=== PATIENT | female | born 1960 | race Caucasian/White ===

== ENCOUNTER 2018-02-18 14:16 | Observation (INO) | payer MEDICARE ==
[2018-02-18] MEDS ORDERED: Acetaminophen 325 MG TAB PO PRN (15:43)
[2018-02-18] MEDS ORDERED: Senokot 8.6 MG TAB PO PRN (15:43)
[2018-02-18] MEDS ORDERED: Guaifenesin DM 100-10/5 ML UDCUP PO PRN (15:43)
[2018-02-18] MEDS ORDERED: Nitroglycerin 0.4 MG TAB (25 Tab Bottle) PO PRN (15:43)
[2018-02-18 16:32] LABS: Troponin I Less than 0.010 ng/mL (< 0.028)
--- NOTE | 2018-02-18 17:21 | HP ---
REASON FOR ADMISSION: Chest pain. HISTORY OF PRESENT ILLNESS: The patient gives history of having sharp left- sided chest pain with radiation to the epigastric area, this happened a week back. She thinks she probably passed out for an hour or so after this. She was watching her usual TV episode during this time and next thing she knows was the episode was over. This morning, she has had dull aching chest pain while she was eating corn flakes. This happened in association with bilateral shoulder paraesthesias. This lasted for 30 minutes and slowly weaned off. She has had dry cough for almost a month now and thinks that it is seasonal allergies. Has no complaints of palpitations, PND or orthopnea. She has had her right ankle, right hip repair and does not ambulate much. She also has history of rheumatoid arthritis with involvement of small joints. The patient has had a prior stress test done in 2013 in [place] in [facility] which was negative as far she knows. PAST MEDICAL AND SURGICAL HISTORY: History of rheumatoid arthritis involving the small joints of her hand, likely migraine seizures the way patient describes her seizures is, she has pain going from the nip of her neck all the way to her occiput and she apparently loses consciousness, but she hears everything. She has never had thrashing of any of her extremities with this. Hypertension, gastroesophageal reflux disease, dyslipidemia, hypothyroidism, right hip repair, right ankle fracture with repair, x1, left carpal tunnel surgery, has had abdominal exploratory surgery, on the lookout for ulcer which was not found, but she was found to be then. CURRENT MEDICATIONS: Norvasc 5 mg daily, Lipitor 10 mg daily, felbamate 400 mg 3 times daily, Keppra 500 mg twice daily, lisinopril 40 mg p.o. daily, levothyroxine 112 mcg p.o. daily, rizatriptan p.r.n. ALLERGIES: Allergic to IODINE. PERSONAL HISTORY: Quit smoking in 1997. Has smoked six packs a day for nearly 10 years or so prior to that. Does not abuse alcohol, but drinks on social occasions. Does not abuse drugs. FAMILY HISTORY: Mother at the age of 80 years. She has had history of CABG and heart failure, CABG was in her 70s. Father of MD at the age of 75 years. Her two brothers have had CABG when they were in their 60s. REVIEW OF SYSTEMS: The following complete review of systems was negative, unless otherwise mentioned in the HPI or below: Constitutional: Weight loss or gain, ability to conduct usual activities. Skin: Rash, itching. Eyes: Double vision, pain. ENT/Mouth: Nose bleeding, neck stiffness, pain, tenderness. Cardiovascular: Palpitations, dyspnea on exertion, orthopnea. Respiratory: Shortness of breath, wheezing, cough, hemoptysis, fever or night sweats. Gastrointestinal: Poor appetite, abdominal pain, heartburn, nausea, vomiting, constipation, or diarrhea. Genitourinary: Urgency, frequency, dysuria, nocturia. Musculoskeletal: Pain, swelling. Neurologic/Psychiatric: Anxiety, depression. Allergy/Immunologic: Skin rash, bleeding tendency. PHYSICAL EXAMINATION: GENERAL: The patient is a 57-year-old female who is currently not in any acute distress. VITAL SIGNS: Blood pressure 128/86, pulse 100 per minute, respiratory rate 18 per minute, temperature 97.6 degrees Fahrenheit, and saturating 96% on room air. NECK: Supple, no elevated JVD. EYES: Extraocular muscles intact. Pupils are reacting to light. ORAL CAVITY: Mucous membranes are moist. No exudates or congestion. CARDIOVASCULAR SYSTEM: S1, S2 heard. Regular rhythm. RESPIRATORY SYSTEM: Air entry 1+ bilateral. Scattered rhonchi plus no rales or wheezes. ABDOMEN: Soft, bowel sounds heard. No tenderness, rigidity or guarding. EXTREMITIES: No peripheral edema or calf tenderness. VASCULAR SYSTEM: Peripheral pulses 1+ bilateral, no ischemic ulcerations or gangrene. CENTRAL NERVOUS SYSTEM: No gross focal deficits seen. Patient is alert, awake , oriented well. PSYCHIATRIC SYSTEM: The patient's mood is euthymic. No hallucinations or delusions. IMAGING DATA AND LABORATORY DATA: EKG done at [facility] shows sinus tachycardia at 113 beats per minute, no gross ST-T wave changes. Repeat EKG done at 3:15 p.m. here shows normal sinus rhythm at 92 beats per minute. Urinalysis is positive for UTI with moderate leukoesterase and 2+ bacteria, although the patient is not symptomatic for the same. Urine drug screen is negative. BUN 7.8, creatinine 0.7, serum glucose is 190, albumin is 4.5. Troponin x1 at [facility] is negative. CK-MB is 0.8, hemoglobin and hematocrit 11 and 36, platelet count 327, MCV 79 with 52% neutrophils. CLINICAL IMPRESSION AND PLAN: The patient will be under observation on telemetry for chest pain, rule out acute coronary syndrome. The patient appears to have atypical chest pain, but has multiple risk factors. She also has very strong family history as well. We will obtain one more set of troponin and patient will be scheduled for nuclear stress test. We will place her on aspirin and follow ACS evidence based protocol. She will continue her Lipitor, felbamate and Keppra for her seizures, Synthroid and reduce her lisinopril to 10 mg twice daily. We will continue to closely monitor her for any hemodynamic compromise. The patient will also be on Cipro for her urinary tract infection and please note patient is not symptomatic and was incidentally found to have had the same at [facility]. We will obtain a urine culture. Likely patient will not be treated on discharge for this. [facility]
[2018-02-18 17:27] VITALS: BMI 36.3
[2018-02-18 19:20] LABS: Troponin I Less than 0.010 ng/mL (< 0.028)
[2018-02-18] MEDS: levETIRAcetam 500 MG TAB PO SCH (20:07)
[2018-02-18] MEDS: Ciprofloxacin 500 MG TAB PO SCH (20:07)
[2018-02-18] MEDS: Famotidine 20 MG TAB PO SCH (20:08)
[2018-02-18] MEDS ORDERED: Atorvastatin Calcium 10 MG TAB PO SCH (21:00)
[2018-02-18 23:00] LABS: Troponin I Less than 0.010 ng/mL (< 0.028)
[2018-02-18] MEDS: Lisinopril 10 MG TAB PO SCH (23:26)
[2018-02-19 04:49] LABS: #Basophils 0.1 thou/uL (0.0-0.2); #Eosinphils 0.2 thou/uL (0.0-0.7); #Lymphocytes 2.6 thou/uL (1.20-3.40); #Monocytes 0.7 thou/uL (0.11-0.59); #Neutrophils 3.2 thou/uL (1.40-6.50); %Basophils 1.2 % (0.0-1.0); %Eosinophils 2.3 % (0.0-10.0); %Lymphocytes 38.9 % (21.0-51.0); %Monocytes 10.2 % (0.0-10.0); %Neutrophils 47.5 % (42.0-75.0); Hemoglobin 11.2 g/dL (12.0-16.0); Mean Corpuscular HGB CONC 32.5 g/dL (32.0-36.0); Mean Corpuscular Hemoglobin 26.9 pg (27.0-31.0); Mean Corpuscular Volume 82.7 fl (81.0-99.0); Mean Platelet Volume 7.1 fL (7.4-10.4); Platelet Count 311 thou/uL (130-400); RBC Distribution Width 15.5 % (11.5-14.5); Red Blood Cell (RBC) Count 4.16 mill/uL (4.20-5.40); White Blood Cell (WBC) Count 6.8 thou/uL (4.8-10.8)
[2018-02-19 04:56] LABS: Anion Gap 12 mmol/L (10-20); BUN (Urea Nitrogen) 10 mg/dL (9.8-20.1); Calc. Creatinine Clearance 122 mL/min (70-130); Calcium 9.6 mg/dL (7.8-10.44); Carbon Dioxide 27 mmol/L (22-29); Cardiac Risk 4.2 (Less than 4.5); Chloride 103 mmol/L (98-107); Cholesterol 159 mg/dl (< 200 Desired); Estimated GFR-MDRD 89; Glucose 121 mg/dL (70-105); HDL Cholesterol 38 mg/dL (>60 Neg Risk); LDL Cholesterol, Calculated 91 mg/dL; Potassium 3.9 mmol/L (3.5-5.1); Sodium 138 mmol/L (136-145); Triglycerides 150 mg/dL (Less than 150)
[2018-02-19] MEDS: Ciprofloxacin 500 MG TAB PO SCH (05:46)
[2018-02-19] MEDS ORDERED: Levothyroxine Sodium 112 MCG TAB PO SCH (06:00)
[2018-02-19] MEDS ORDERED: Lorazepam 2 MG/ML VIAL ONE (08:57)
[2018-02-19] MEDS ORDERED: Enoxaparin Sodium 40 MG/0.4 ML SYRINGE SC SCH (09:00)
[2018-02-19] MEDS ORDERED: Aspirin 325 MG TAB PO SCH (09:00)
[2018-02-19] MEDS ORDERED: Amlodipine 5 MG TAB PO SCH (09:00)
[2018-02-19] MEDS ORDERED: Lorazepam 2 MG/ML VIAL SLOW IVP SCH (10:00)
[2018-02-19] MEDS: Lisinopril 10 MG TAB PO SCH (11:13)
[2018-02-19] MEDS: Famotidine 20 MG TAB PO SCH (11:13)
[2018-02-19] MEDS: levETIRAcetam 500 MG TAB PO SCH (11:14)
--- NOTE | 2018-02-19 12:46 | NM ---
NUCLEAR MEDICINE CARDIAC STRESS WITH EJECTION FRACTION AND WALL MOTION: HISTORY: 57-year-old female. Hyperthyroidism. Chest pain. Hypertension. Family history of CABG. COMPARISON: None. TECHNIQUE: The patient was administered 10.5 mCi of technetium-99m sestamibi for rest imaging and 28 mCi of tech netium-99m sestamibi for stress imaging. Cardiac gating is performed. FINDINGS: There is homogeneous distribution of the radiotracer in the left ventricle on the attenuation correct ed images. No reversibility. No fixed defect. TID is 1.17. End-diastolic volume is 49 mL. End-systolic volume is 12 mL. CARDIAC GATING: Normal motion and thickening. Ejection fraction is 75%. IMPRESSION: 1. Homogeneous distribution of radiotracer. No reversibility or fixed defect. 2. Ejection fraction is 75%. POS: PATRICIA
--- NOTE | 2018-02-19 13:47 | PDOC.PN ---
- Subjective Encounter Start Date: 02/19/18 Encounter Start Time: 13:30 Subjective: no further chest pain, feels better - Objective MAR Reviewed: Yes Vital Signs & Weight: Vital Signs (12 hours) Temp Pulse Resp BP Pulse Ox 02/19/18 11:59 97.8 F 102 H 16 118/68 94 L 02/19/18 07:59 98.3 F 90 16 02/19/18 07:22 98.4 F 94 20 117/75 94 L 02/19/18 03:47 98.3 F 90 16 104/75 92 L Weight Weight 186 lb 1.6 oz I&O: 02/18/18 02/19/18 02/20/18 06:59 06:59 06:59 Intake Total 1260 Output Total 900 Balance 360 Result Diagrams: 02/19/18 04:17 02/19/18 04:17 Phys Exam - Physical Examination HEENT: PERRLA, moist MMs Neck: no JVD, supple Respiratory: no wheezing, no rales Cardiovascular: RRR, no significant murmur Gastrointestinal: soft, non-tender, positive bowel sounds Musculoskeletal: no edema, pulses present Neurological: non-focal, moves all 4 limbs Psychiatric: normal affect, A&O x 3 Dx/Plan (1) Chest pain Code(s): R07.9 - CHEST PAIN, UNSPECIFIED Status: Resolved Qualifiers: Chest pain type: unspecified Qualified Code(s): R07.9 - Chest pain, unspecified (2) HTN (hypertension) Code(s): I10 - ESSENTIAL (PRIMARY) HYPERTENSION Status: Chronic Qualifiers: Hypertension type: essential hypertension Qualified Code(s): I10 - Essential (primary) hypertension (3) Dyslipidemia Code(s): E78.5 - HYPERLIPIDEMIA, UNSPECIFIED Status: Chronic (4) Hypothyroidism Code(s): E03.9 - HYPOTHYROIDISM, UNSPECIFIED Status: Chronic Qualifiers: Hypothyroidism type: unspecified Qualified Code(s): E03.9 - Hypothyroidism , unspecified (5) H/O rheumatoid arthritis Code(s): Z87.39 - PERSONAL HISTORY OF DISEASES OF THE MS SYS AND CONN TISS Status: Chronic (6) Migraine triggered seizures Code(s): G43.109 - MIGRAINE WITH AURA, NOT INTRACTABLE, W/O STATUS MIGRAINOSUS; R56.9 - UNSPECIFIED CONVULSIONS Status: Suspected - Plan hemostable -: stress test is normal -: ldl around 91 -: to f/u with pcp in 1 week -: dc pt home * .
[2018-02-19] MEDS ORDERED: ADENOSINE 60 MG/20 ML VIAL ONE (15:11)
[2018-02-19 15:29] VITALS: BP 105/69; TEMP 99
--- NOTE | 2018-02-19 17:13 | DIS ---
DATE OF ADMISSION: 02/18/2018 DATE OF DISCHARGE: 02/19/2018 DISCHARGE DISPOSITION: To home. PRIMARY DISCHARGE DIAGNOSIS: Chest pain, which is noncardiac. SECONDARY DISCHARGE DIAGNOSIS: 1. Hypertension. 2. History of rheumatoid arthritis. 3. Dyslipidemia. 4. Hypothyroidism. 5. Migraine with likely migraine seizures. PROCEDURES DONE DURING HOSPITALIZATION: Nuclear stress test done showed EF of 75% with normal wall m otion and thickening. There is no reversible or fixed defect seen. H&H 11 and 34. Troponin x3 nega tive. LDL is 91, total cholesterol 159. DISCHARGE MEDICATIONS: Norvasc 10 mg p.o. at bedtime, Lipitor 10 mg p.o. at bedtime, ciprofloxacin 5 00 mg p.o. twice daily for UTI for another 4 days, felbamate 400 mg p.o. twice daily, Keppra 500 mg p .o. twice daily, Synthroid 112 mcg p.o. daily, lisinopril 40 mg p.o. daily, Meloxicam 15 mg p.o. bob y p.r.n., omeprazole 20 mg daily, and rizatriptan p.r.n. ALLERGIES: IODINE. DISCHARGE PLAN: The patient to follow up with primary care physician in 1 week. BRIEF COURSE DURING HOSPITALIZATION: The patient initially came to ER with complaints of chest pain with bilateral shoulder paraesthesias. She was essentially placed under observation on telemetry to rule out ACS. She has had 3 sets of troponin done which was negative and nuclear stress test done sh owed no reversible ischemia. She has been chest pain free. The patient is advised to check blood pr essure and pulse twice daily for a period of 10 days to follow up with primary care physician. She i s otherwise hemodynamically stable and will be shortly discharged back home. Please see a face to fa ce documentation on [facility] for the day of discharge.
--- NOTE | 2018-02-20 22:36 | STRESS ---
Acquisition Time: 2018-02-19 09:54:37 Total Exercise Time: 00:04:00 Test Indications: CHEST PAIN Medications: Protocol: ADENOSINE Max HR: 112 BPM 68% of Pred: 163 BPM Max BP: 126/076 mmHG Max Work Load: 1.0 METS RESTING ECG: NORMAL SINUS RHYTHM AT 99 BPM WITH OCCASIONAL PACs SYMPTOMS: NONE HYPOTENSIVE BLOOD PRESSURE RESPONSE ECTOPY: 3RD DEGREE AV BLOCK WITH INFUSION ECG RESPONSE: NO SIGNIFICANT CHANGES INTERPRETATION: NEGATIVE ECG/AWAIT NUCLEAR IMAGES FOR DEFINITIVE DIAGNOSIS Confirmed by MELONY HOLGUIN M.D. ([id number] on 02/20/2018 10:35:28 PM Referred By: Gianna HANSEN Confirmed By:MELONY HOLGUIN M.D.
== END 2018-02-19 18:33 | disposition home or self-care (01) ==
LOC: ERS 14:16 → 2SW 15:43
PROVIDERS: ADMIT Internal Medicine; ATTEND Internal Medicine
DX: R07.89 Other chest pain (principal); I10 Essential (primary) hypertension; M06.9 Rheumatoid arthritis, unspecified; E78.5 Hyperlipidemia, unspecified; E03.9 Hypothyroidism, unspecified; G43.909 Migraine, unspecified, not intractable, without status migrainosus; K21.9 Gastro-esophageal reflux disease without esophagitis; Z79.899 Other long term (current) drug therapy; Z98.891 History of uterine scar from previous surgery; Z91.041 Radiographic dye allergy status; Z98.890 Other specified postprocedural states; Z87.891 Personal history of nicotine dependence; Z82.49 Family history of ischemic heart disease and other diseases of the circulatory system
CPT/HCPCS: 78452; 80048; 80061; 84484 ×2; 85025; 87086; 93005; 93017; 96372; 99285; A9500; G0378; 36415; J0153; J1650; J2060